=== PATIENT | male | born 1970 | race Caucasian/White ===

== ENCOUNTER 2016-12-12 14:47 | Inpatient (IN) | payer OTHER ==
[2016-12-12 16:01] VITALS: BMI 30.6
[2016-12-12] MEDS ORDERED: diphenhydrAMINE HCL 50 MG CAPSULE PO PRN (17:26)
[2016-12-12] MEDS ORDERED: IBUPROFEN 400 MG TABLET (FP) PO PRN (17:26)
[2016-12-12] MEDS ORDERED: ACETAMINOPHEN 325 MG TABLET (FP) PO PRN (17:26)
[2016-12-12] MEDS ORDERED: guaiFENesin/D-METHORPHAN HB 10 ML UNIT-DOSE CUPS PO PRN (17:26)
[2016-12-12] MEDS ORDERED: METHADONE HCL 10 MG TABLET (FOR DETOX USE ONLY) PO ONE ×2 (17:26→23:00)
[2016-12-12] MEDS ORDERED: P-EPHED 60MG/TRIPROLIDI 2.5MG TABLET PO PRN (17:26)
[2016-12-12] MEDS ORDERED: MAGNESIUM HYDROX 2400MG/30ML ORAL SUSPENSION 30 ML CUP PO PRN (17:26)
[2016-12-12] MEDS ORDERED: LOPERAMIDE HCL 2 MG CAPSULE PO PRN (17:26)
[2016-12-12] MEDS ORDERED: MAG HYDROX/AL HYDROX/SIMETH 30 ML UNIT-DOSE CUP PO PRN (17:26)
[2016-12-12] MEDS ORDERED: MAGNESIUM CITRATE 300 ML BOTTLE PO PRN (17:26)
[2016-12-12] MEDS ORDERED: MENTHOL/PHENOL 1 EACH UD MM PRN (17:26)
[2016-12-12] MEDS ORDERED: hydrOXYzine PAMOATE 50 MG CAPSULE (FP) PO PRN (17:26)
--- NOTE | 2016-12-12 17:26 | HP ---
COWS - Scale Resting Pulse: 0= [place] 80 or Below Sweatin= Chills/Flushing Restless Observation: 1= Difficult to Sit Still Pupil Size: 1= Pupils >than Normal Bone or Joint Aches: 1= Mild Discomfort Runny Nose/ Eye Tearin= Nasal Congestion GI Upset > 30mins: 2= Nausea/Diarrhea Tremor Observation: 2= Slight Tremor Visible Yawning Observation: 1= 1-2x During Session Anxiety or Irritability: 2=Irritable/Anxious Goose Flesh Skin: 3=Piloerection COWS Score: 15 Admission ROS [facility] Chief Complaint: heroin withdrawal Allergies/Adverse Reactions: Allergies Allergy/AdvReac Type Severity Reaction Status Date / Time Fish Containing Products Allergy Severe Itching Verified 12/12/16 16:27 No Known Drug Allergies Allergy Verified 12/12/16 16:27 History of Present Illness: 46 yo m with opioid dependence not in treatment, was admitted to [facility] for detox less than 1 year ago, using daily 15 bags, last used this am. now c/o heroin withdrawwals, no seziures, no DTs, denies alcohol use, occasional benzodiazepine or sedative use on weekends. smokes <10/day. no psychiatric history no suicidal ideation - Ebola screening Have you traveled outside of the country in the last 21 days: No Have you had contact with anyone from an Ebola affected area: No Have you been sick,other than usual withdrawal symptoms: No - Review of Systems Constitutional: Chills, Diaphoresis, Loss of Appetite, Malaise, Night Sweats, Changes in sleep, Weakness EENT: reports: Nose Congestion Respiratory: reports: No Symptoms reported Cardiac: reports: No Symptoms Reported GI: reports: Diarrhea, Nausea, Poor Appetite, Poor Fluid Intake, Vomiting, Indigestion, Abdominal cramping : reports: No Symptoms Reported Musculoskeletal: reports: Back Pain, Joint Pain (knee pain from arthrititis) Integumentary: reports: Flushing, Sweating Neuro: reports: Numbness, Tremors Endocrine: reports: No Symptoms Reported Hematology: reports: No Symptoms Reported Psychiatric: reports: Judgement Intact, Mood/Affect Appropiate, Orientated x3, Anxious, Depressed Other Systems: Reviewed and Negative Patient History - Patient Medical History Hx Anemia: No Hx Asthma: No Hx Chronic Obstructive Pulmonary Disease (COPD): No Hx Cancer: No Hx Cardiac Disorders: No Hx Congestive Heart Failure: No Hx Hypertension: No Hx Hypercholesterolemia: No Hx Pacemaker: No HX Cerebrovascular Accident: No Hx Seizures: No Hx Dementia: No Hx Diabetes: No Hx Gastrointestinal Disorders: No Hx Liver Disease: No Hx Genitourinary Disorders: No Hx Sexually Transmitted Disorders: No Hx Renal Disease (ESRD): No Hx Thyroid Disease: No Hx Human Immunodeficiency Virus (HIV): No Hx Hepatitis C: No Hx Depression: Yes Hx Suicide Attempt: No Hx Bipolar Disorder: No Hx Schizophrenia: No - Patient Surgical History Past Surgical History: No Hx Neurologic Surgery: No Hx Cataract Extraction: No Hx Cardiac Surgery: No Hx Lung Surgery: No Hx Breast Surgery: No Hx Breast Biopsy: No Hx Abdominal Surgery: No Hx Appendectomy: No Hx Cholecystectomy: No Hx Genitourinary Surgery: No Hx Section: No Hx Orthopedic Surgery: No Hx Hysterectomy: No Anesthesia Reaction: No - PPD History Previous Implant?: Yes Documented Results: Negative w/proof Date: 01/29/16 Results: 0 mm PPD to be Administered?: No - Reproductive History Patient is a Female of Child Bearing Age (11 -55 yrs old): No Patient : No - Smoking Cessation Smoking history: Current every day smoker Have you smoked in the past 12 months: Yes Aproximately how many cigarettes per day: 6 Cigars Per Day: 0 Hx Chewing Tobacco Use: No Initiated information on smoking cessation: Yes 'Breaking Loose' booklet given: 12/12/16 - Substance & Tx. History Hx Alcohol Use: No Hx Substance Use: Yes Substance Use Type: Heroin, Opiates, Prescribed, Tranquilizers Hx Substance Use Treatment: Yes ([facility] 01/2016) - Substances Abused Heroin Route: Inhalation Frequency: Daily Amount used: 15 bags Age of first use: 27 Date of Last Use: 12/12/16 Family Disease History - Family Disease History Family Disease History: Diabetes: Mother (ARTHRITIS), Other: Father (NEVER MET) , Mother Admission Physical Exam BHS - Vital Signs Vital Signs: Vital Signs - 24 hr 12/12/16 16:00 Temperature 96.2 F L Pulse Rate 69 Respiratory 18 Rate Blood Pressure 141/80 - Physical General Appearance: Yes: Nourished, Appropriately Dressed, Disheveled, Mild Distress, Tremorous, Irritable, Sweating, Anxious HEENTM: Yes: EOMI, Hearing grossly Normal, Normal ENT Inspection, Normocephalic , Normal Voice, WILLA, Pharynx Normal, Nasal Congestion, Rhinorrhea Respiratory: Yes: Within Normal Limits, Chest Non-Tender, Lungs Clear, Normal Breath Sounds, No Respiratory Distress, No Accessory Muscle Use Neck: Yes: Within Normal Limits, No masses,lesions,Nodules, Supple, Trachea in good position Breast: Yes: Breast Exam Deferred Cardiology: Yes: Within Normal Limits, Regular Rhythm, Regular Rate, S1, S2 Abdominal: Yes: Normal Bowel Sounds, Non Tender, Soft, Increased Bowel Sounds, Protuberent, Distended Genitourinary: Yes: Within Normal Limits Back: Yes: Within Normal Limits, Normal Inspection Musculoskeletal: Yes: full range of Motion, Gait Steady, Pelvis Stable, Back pain, Joint Stiffness (left knee) Extremities: Yes: Normal Capillary Refill, Normal Range of Motion, Non-Tender, Tremors Neurological: Yes: captain cannery tender II-XII NML intact, Fully Oriented, Alert, Motor Strength 5/5, Normal Response, Depressed Affect Integumentary: Yes: Normal Color, Warm, Moist Lymphatic: Yes: Within Normal Limits - Addiitonal Findings: heroin withdrawal sx noted - Diagnostic (1) Nicotine dependence Current Visit: Yes Status: Chronic Qualifiers: Nicotine product type: cigarettes Substance use status: uncomplicated Qualified Code(s): F17.210 - Nicotine dependence, cigarettes, uncomplicated (2) Arthritis Current Visit: Yes Status: Suspected Comment: LEFT KNEE (3) Opioid dependence with withdrawal Current Visit: Yes Status: Acute (4) Benzodiazepine abuse Current Visit: Yes Status: Acute (5) Obesity Current Visit: Yes Status: Acute Cleared for Admission [facility] - Detox or Rehab [facility] Level of Care: Medically Managed Detox Regimen/Protocol: Methadone [facility] Breath Alcohol Content Breath Alcohol Content: 0 Urine Drug Screen - Results Drug Screen Negative: No Urine Drug Screen Results: OPI-Opiates, OXY-Oxycodone
[2016-12-12] MEDS: diazePAM 5 MG TABLET PO PRN (18:24)
[2016-12-12] MEDS: NICOTINE 14 MG/24 HOURS TOPICAL PATCH TD SCH (18:24)
[2016-12-12 21:43] LABS: URINE APPEARANCE CLEAR; URINE BILIRUBIN NEGATIVE (NEGATIVE); URINE BLOOD NEGATIVE (NEGATIVE); URINE COLOR LTYELLOW; URINE GLUCOSE (UA) NEGATIVE (NEGATIVE); URINE KETONE NEGATIVE (NEGATIVE); URINE LEUK ESTERASE NEGATIVE (NEGATIVE); URINE NITRITE NEGATIVE (NEGATIVE); URINE PROTEIN NEGATIVE (NEGATIVE); URINE UROBILINOGEN NEGATIVE mg/dL (0.2-1.0)
[2016-12-12] MEDS: NAPROXEN 500 MG TABLET (FP) PO SCH (22:09)
[2016-12-12] MEDS: ZOLPIDEM TARTRATE 5 MG TABLET PO PRN (22:09)
[2016-12-12] MEDS: CYCLOBENZAPRINE HCL 10 MG TABLET (FP) PO SCH (22:09)
[2016-12-12] MEDS: THIAMINE HCL 100 MG TABLET (FP) PO SCH (22:09)
[2016-12-13] MEDS: diazePAM 5 MG TABLET PO PRN (06:12)
[2016-12-13] MEDS: CYCLOBENZAPRINE HCL 10 MG TABLET (FP) PO SCH ×3 (06:12→22:08)
[2016-12-13 10:00] LABS: MCH 29.9 pg (25.7-33.7); MCHC 32.8 g/dl (32.0-35.9); MEAN PLT VOLUME 8.4 fl (7.5-11.1); PLATELET COUNT 213 K/MM3 (134-434); RDW 13.4 % (11.9-15.9); WHITE BLOOD COUNT 5.4 K/mm3 (4.0-10.0)
[2016-12-13] MEDS ORDERED: METHADONE HCL 10 MG TABLET (FOR DETOX USE ONLY) PO ONE (10:00)
[2016-12-13] MEDS: NAPROXEN 500 MG TABLET (FP) PO SCH ×2 (10:07→22:08)
[2016-12-13] MEDS: NICOTINE POLACRILEX 2 MG GUM BC PRN (10:07)
[2016-12-13] MEDS: PANTOPRAZOLE 40 MG TABLET (FP) PO SCH (10:07)
[2016-12-13] MEDS: NICOTINE 14 MG/24 HOURS TOPICAL PATCH TD SCH (10:07)
[2016-12-13] MEDS: PRENATAL VITAMINS W/ FOLIC ACID TABLET (FP) PO SCH (10:07)
[2016-12-13 10:42] LABS: ALBUMIN 3.2 g/dl (3.4-5.0); ALK PHOS 46 U/L (45-117); ANION GAP 7 (8-16); BILIRUBIN,TOTAL 0.7 mg/dL (0.2-1.0); CALCIUM 8.2 mg/dL (8.5-10.1); CO2 30 mmol/L (21-32); CREATININE 0.8 mg/dL (0.7-1.3); GLUCOSE,RANDOM 81 mg/dL (74-106); SGOT/AST 13 U/L (15-37); SGPT/ALT 24 U/L (12-78)
--- NOTE | 2016-12-13 11:28 | PN ---
BHS COWS - Scale Resting Pulse: 0= [place] 80 or Below Sweatin= Chills/Flushing Restless Observation: 1= Difficult to Sit Still Pupil Size: 0= Normal to Room Light Bone or Joint Aches: 1= Mild Discomfort Runny Nose/ Eye Tearin= Runny Nose/Eyes GI Upset > 30mins: 1= Stomach Cramp Tremor Observation of Outstretched Hands: 0= None Yawning Observation: 1= 1-2x During Session Anxiety or Irritability: 2=Irritable/Anxious Goose Flesh Skin: 3=Piloerection COWS Score: 12 BHS Progress Note (SOAP) Subjective: Fatigue, Sweating, Anxious. Objective: PT. A & O X 2 (DISORIENTED ABOUT DAY / DATE). NO ACUTE DISTRESS. PT. OBSERVED AMBULATING ON UNIT. 12/13/16 11:26 Vital Signs Temperature 97.5 F L 12/13/16 09:43 Pulse Rate 73 12/13/16 09:43 Respiratory Rate 18 12/13/16 09:43 Blood Pressure 116/77 12/13/16 09:43 O2 Sat by Pulse Oximetry (%) Laboratory Tests 12/12/16 12/13/16 12/13/16 20:30 07:00 07:00 WBC 5.4 RBC 4.03 Hgb 12.0 D Hct 36.7 MCV 91.0 MCH 29.9 MCHC 32.8 RDW 13.4 Plt Count 213 MPV 8.4 Urine Color Ltyellow Urine Appearance Clear Urine pH 5.0 Ur Specific [place] 1.020 Urine Protein Negative Urine Glucose (UA) Negative Urine Ketones Negative Urine Blood Negative Urine Nitrite Negative Urine Bilirubin Negative Urine Urobilinogen Negative Ur Leukocyte Esterase Negative RPR Titer Nonreactive LABS NOTED. CMP PENDING. 12/13/16 11:28 Assessment: 12/13/16 11:27 WITHDRAWAL SYMPTOMS. Plan: CONTINUE DETOX.
--- NOTE | 2016-12-13 12:27 | EKG ---
Test Reason : Blood Pressure : / mmHG Vent. Rate : 071 BPM Atrial Rate : 071 BPM P-R Int : 104 ms QRS Dur : 082 ms QT Int : 402 ms P-R-T Axes : -64 052 037 degrees QTc Int : 436 ms POOR DATA QUALITY, INTERPRETATION MAY BE ADVERSELY AFFECTED NORMAL SINUS RHYTHM Confirmed by DAMIEN SAUL, SAE ([id number]) on 12/13/2016 12:27:34 PM Referred By: Confirmed By:SAE QUEZADA MD
--- NOTE | 2016-12-13 14:12 | EKG ---
Test Reason : Blood Pressure : / mmHG Vent. Rate : 069 BPM Atrial Rate : 069 BPM P-R Int : 122 ms QRS Dur : 090 ms QT Int : 400 ms P-R-T Axes : 060 045 041 degrees QTc Int : 428 ms NORMAL SINUS RHYTHM NORMAL ECG WHEN COMPARED WITH ECG OF 12-DEC-2016 18:28, SINUS RHYTHM HAS REPLACED JUNCTIONAL RHYTHM Confirmed by SAE QUEZADA MD ([id number]) on 12/13/2016 2:11:47 PM Referred By: Confirmed By:SAE QUEZADA MD
[2016-12-13] MEDS: ZOLPIDEM TARTRATE 5 MG TABLET PO PRN (22:08)
[2016-12-13] MEDS: THIAMINE HCL 100 MG TABLET (FP) PO SCH (22:08)
[2016-12-14] MEDS: CYCLOBENZAPRINE HCL 10 MG TABLET (FP) PO SCH ×3 (05:48→22:09)
[2016-12-14] MEDS ORDERED: METHADONE HCL 5 MG TABLET (FOR DETOX USE ONLY) PO ONE (10:00)
[2016-12-14] MEDS: NAPROXEN 500 MG TABLET (FP) PO SCH ×2 (10:05→22:09)
[2016-12-14] MEDS: PANTOPRAZOLE 40 MG TABLET (FP) PO SCH (10:05)
[2016-12-14] MEDS: NICOTINE 14 MG/24 HOURS TOPICAL PATCH TD SCH (10:05)
[2016-12-14] MEDS: PRENATAL VITAMINS W/ FOLIC ACID TABLET (FP) PO SCH (10:05)
--- NOTE | 2016-12-14 12:04 | PN ---
S COWS - Scale Resting Pulse: 1= SD 81-100 Sweatin= Chills/Flushing Restless Observation: 1= Difficult to Sit Still Pupil Size: 0= Normal to Room Light Bone or Joint Aches: 1= Mild Discomfort Runny Nose/ Eye Tearin= Runny Nose/Eyes GI Upset > 30mins: 0= None Tremor Observation of Outstretched Hands: 1= Tremor [place], Not Seen Yawning Observation: 1= 1-2x During Session Anxiety or Irritability: 2=Irritable/Anxious Goose Flesh Skin: 3=Piloerection COWS Score: 13 S Progress Note (SOAP) Subjective: Anxious, Fatigue. Objective: PT. A & O X 2 (DISORIENTED ABOUT DAY/ DATE). NO ACUTE DISTRESS. 12/14/16 12:06 Vital Signs Temperature 97.4 F L 12/14/16 11:02 Pulse Rate 93 H 12/14/16 11:02 Respiratory Rate 20 12/14/16 11:02 Blood Pressure 126/80 12/14/16 11:02 O2 Sat by Pulse Oximetry (%) Laboratory Tests 12/12/16 12/13/16 12/13/16 20:30 07:00 07:00 WBC 5.4 RBC 4.03 Hgb 12.0 D Hct 36.7 MCV 91.0 MCH 29.9 MCHC 32.8 RDW 13.4 Plt Count 213 MPV 8.4 Sodium 141 Potassium 4.4 Chloride 104 Carbon Dioxide 30 Anion Gap 7 L BUN 17 Creatinine 0.8 Creat Clearance w eGFR > 60 Random Glucose 81 Calcium 8.2 L Total Bilirubin 0.7 D AST 13 L D ALT 24 Alkaline Phosphatase 46 Total Protein 6.0 L Albumin 3.2 L Urine Color Ltyellow Urine Appearance Clear Urine pH 5.0 Ur Specific [place] 1.020 Urine Protein Negative Urine Glucose (UA) Negative Urine Ketones Negative Urine Blood Negative Urine Nitrite Negative Urine Bilirubin Negative Urine Urobilinogen Negative Ur Leukocyte Esterase Negative RPR Titer 12/13/16 07:00 WBC RBC Hgb Hct MCV MCH MCHC RDW Plt Count MPV Sodium Potassium Chloride Carbon Dioxide Anion Gap BUN Creatinine Creat Clearance w eGFR Random Glucose Calcium Total Bilirubin AST ALT Alkaline Phosphatase Total Protein Albumin Urine Color Urine Appearance Urine pH Ur Specific [place] Urine Protein Urine Glucose (UA) Urine Ketones Urine Blood Urine Nitrite Urine Bilirubin Urine Urobilinogen Ur Leukocyte Esterase RPR Titer Nonreactive LABS NOTED. Assessment: 12/14/16 12:07 WITHDRAWAL SYMPTOMS. Plan: CONTINUE DETOX.
[2016-12-14] MEDS: ZOLPIDEM TARTRATE 5 MG TABLET PO PRN (22:09)
[2016-12-14] MEDS: THIAMINE HCL 100 MG TABLET (FP) PO SCH (22:09)
[2016-12-14] MEDS: diazePAM 5 MG TABLET PO PRN (22:09)
[2016-12-15] MEDS: CYCLOBENZAPRINE HCL 10 MG TABLET (FP) PO SCH ×3 (06:06→22:09)
[2016-12-15] MEDS ORDERED: METHADONE HCL 5 MG TABLET (FOR DETOX USE ONLY) PO ONE (10:00)
[2016-12-15] MEDS: diazePAM 5 MG TABLET PO PRN (10:12)
[2016-12-15] MEDS: PRENATAL VITAMINS W/ FOLIC ACID TABLET (FP) PO SCH (10:12)
[2016-12-15] MEDS: PANTOPRAZOLE 40 MG TABLET (FP) PO SCH (10:12)
[2016-12-15] MEDS: NICOTINE 14 MG/24 HOURS TOPICAL PATCH TD SCH (10:12)
[2016-12-15] MEDS: NAPROXEN 500 MG TABLET (FP) PO SCH ×2 (10:12→22:09)
[2016-12-15] MEDS: NICOTINE POLACRILEX 2 MG GUM BC PRN (10:14)
--- NOTE | 2016-12-15 19:20 | PN ---
BHS Progress Note (SOAP) Subjective: Vomiting, Sweating. Objective: PT. A & O X 3, OBSERVED AMBULATING ON UNIT. NO ACUTE DISTRESS. 12/15/16 19:18 Vital Signs Temperature 97.7 F 12/15/16 18:24 Pulse Rate 93 H 12/15/16 18:24 Respiratory Rate 18 12/15/16 18:24 Blood Pressure 99/57 12/15/16 18:24 O2 Sat by Pulse Oximetry (%) Laboratory Tests 12/12/16 12/13/16 12/13/16 20:30 07:00 07:00 WBC 5.4 RBC 4.03 Hgb 12.0 D Hct 36.7 MCV 91.0 MCH 29.9 MCHC 32.8 RDW 13.4 Plt Count 213 MPV 8.4 Sodium 141 Potassium 4.4 Chloride 104 Carbon Dioxide 30 Anion Gap 7 L BUN 17 Creatinine 0.8 Creat Clearance w eGFR > 60 Random Glucose 81 Calcium 8.2 L Total Bilirubin 0.7 D AST 13 L D ALT 24 Alkaline Phosphatase 46 Total Protein 6.0 L Albumin 3.2 L Urine Color Ltyellow Urine Appearance Clear Urine pH 5.0 Ur Specific [place] 1.020 Urine Protein Negative Urine Glucose (UA) Negative Urine Ketones Negative Urine Blood Negative Urine Nitrite Negative Urine Bilirubin Negative Urine Urobilinogen Negative Ur Leukocyte Esterase Negative RPR Titer 12/13/16 07:00 WBC RBC Hgb Hct MCV MCH MCHC RDW Plt Count MPV Sodium Potassium Chloride Carbon Dioxide Anion Gap BUN Creatinine Creat Clearance w eGFR Random Glucose Calcium Total Bilirubin AST ALT Alkaline Phosphatase Total Protein Albumin Urine Color Urine Appearance Urine pH Ur Specific [place] Urine Protein Urine Glucose (UA) Urine Ketones Urine Blood Urine Nitrite Urine Bilirubin Urine Urobilinogen Ur Leukocyte Esterase RPR Titer Nonreactive LABS NOTED. Assessment: 12/15/16 19:19 WITHDRAWAL SYMPTOMS. Plan: CONTINUE DETOX. INCREASE PO FLUID INTAKE.
[2016-12-15] MEDS: ZOLPIDEM TARTRATE 5 MG TABLET PO PRN (22:09)
[2016-12-15] MEDS: THIAMINE HCL 100 MG TABLET (FP) PO SCH (22:09)
[2016-12-16] MEDS: CYCLOBENZAPRINE HCL 10 MG TABLET (FP) PO SCH ×3 (05:13→22:23)
[2016-12-16] MEDS ORDERED: METHADONE HCL 10 MG TABLET (FOR DETOX USE ONLY) PO ONE (10:00)
[2016-12-16] MEDS: NICOTINE POLACRILEX 2 MG GUM BC PRN (10:08)
[2016-12-16] MEDS: NAPROXEN 500 MG TABLET (FP) PO SCH ×2 (10:08→22:23)
[2016-12-16] MEDS: PRENATAL VITAMINS W/ FOLIC ACID TABLET (FP) PO SCH (10:08)
[2016-12-16] MEDS: PANTOPRAZOLE 40 MG TABLET (FP) PO SCH (10:08)
[2016-12-16] MEDS: NICOTINE 14 MG/24 HOURS TOPICAL PATCH TD SCH (10:09)
--- NOTE | 2016-12-16 16:35 | PN ---
BHS Progress Note (SOAP) Subjective: Weak (low energy), sweating, interrupted sleep, chills Objective: 12/16/16 16:33 Last Vital Signs Temp Pulse Resp BP Pulse Ox 97.0 F L 104 H 20 100/74 12/16/16 13:17 12/16/16 13:17 12/16/16 13:17 12/16/16 13:17 Laboratory Tests 12/12/16 12/13/16 12/13/16 20:30 07:00 07:00 WBC 5.4 RBC 4.03 Hgb 12.0 D Hct 36.7 MCV 91.0 MCH 29.9 MCHC 32.8 RDW 13.4 Plt Count 213 MPV 8.4 Sodium 141 Potassium 4.4 Chloride 104 Carbon Dioxide 30 Anion Gap 7 L BUN 17 Creatinine 0.8 Creat Clearance w eGFR > 60 Random Glucose 81 Calcium 8.2 L Total Bilirubin 0.7 D AST 13 L D ALT 24 Alkaline Phosphatase 46 Total Protein 6.0 L Albumin 3.2 L Urine Color Ltyellow Urine Appearance Clear Urine pH 5.0 Ur Specific [place] 1.020 Urine Protein Negative Urine Glucose (UA) Negative Urine Ketones Negative Urine Blood Negative Urine Nitrite Negative Urine Bilirubin Negative Urine Urobilinogen Negative Ur Leukocyte Esterase Negative RPR Titer 12/13/16 07:00 WBC RBC Hgb Hct MCV MCH MCHC RDW Plt Count MPV Sodium Potassium Chloride Carbon Dioxide Anion Gap BUN Creatinine Creat Clearance w eGFR Random Glucose Calcium Total Bilirubin AST ALT Alkaline Phosphatase Total Protein Albumin Urine Color Urine Appearance Urine pH Ur Specific [place] Urine Protein Urine Glucose (UA) Urine Ketones Urine Blood Urine Nitrite Urine Bilirubin Urine Urobilinogen Ur Leukocyte Esterase RPR Titer Nonreactive Labs noted Assessment: 12/16/16 16:34 Withdrawal symptoms Plan: Continue detox
[2016-12-16] MEDS: ZOLPIDEM TARTRATE 5 MG TABLET PO PRN (22:23)
[2016-12-16] MEDS: THIAMINE HCL 100 MG TABLET (FP) PO SCH (22:23)
[2016-12-17] MEDS: CYCLOBENZAPRINE HCL 10 MG TABLET (FP) PO SCH ×2 (05:43→13:40)
[2016-12-17] MEDS ORDERED: METHADONE HCL 5 MG TABLET (FOR DETOX USE ONLY) PO ONE (06:00)
--- NOTE | 2016-12-17 09:06 | DS ---
[facility] Detox Discharge Summary Admission Date: 12/12/16 Discharge Date: 12/17/16 - History Present History: Opioid Dependence Pertinent Past History: nicotine dependence, obesity - Physical Exam Results Vital Signs: Vital Signs Temperature 97.4 F L 12/17/16 06:27 Pulse Rate 102 H 12/17/16 06:27 Respiratory Rate 18 12/17/16 06:27 Blood Pressure 114/75 12/17/16 06:27 O2 Sat by Pulse Oximetry (%) Laboratory Tests 12/12/16 12/13/16 12/13/16 20:30 07:00 07:00 WBC 5.4 RBC 4.03 Hgb 12.0 D Hct 36.7 MCV 91.0 MCH 29.9 MCHC 32.8 RDW 13.4 Plt Count 213 MPV 8.4 Sodium 141 Potassium 4.4 Chloride 104 Carbon Dioxide 30 Anion Gap 7 L BUN 17 Creatinine 0.8 Creat Clearance w eGFR > 60 Random Glucose 81 Calcium 8.2 L Total Bilirubin 0.7 D AST 13 L D ALT 24 Alkaline Phosphatase 46 Total Protein 6.0 L Albumin 3.2 L Urine Color Ltyellow Urine Appearance Clear Urine pH 5.0 Ur Specific [place] 1.020 Urine Protein Negative Urine Glucose (UA) Negative Urine Ketones Negative Urine Blood Negative Urine Nitrite Negative Urine Bilirubin Negative Urine Urobilinogen Negative Ur Leukocyte Esterase Negative RPR Titer 12/13/16 07:00 WBC RBC Hgb Hct MCV MCH MCHC RDW Plt Count MPV Sodium Potassium Chloride Carbon Dioxide Anion Gap BUN Creatinine Creat Clearance w eGFR Random Glucose Calcium Total Bilirubin AST ALT Alkaline Phosphatase Total Protein Albumin Urine Color Urine Appearance Urine pH Ur Specific [place] Urine Protein Urine Glucose (UA) Urine Ketones Urine Blood Urine Nitrite Urine Bilirubin Urine Urobilinogen Ur Leukocyte Esterase RPR Titer Nonreactive Pertinent Admission Physical Exam Findings: withdrawal sx - Treatment Hospital Course: Detox Protocol Followed, Detoxed Safely, Responded well, Discharged Condition Good, Rehab Referral Accepted - Medication Discharge Medications: Ambulatory Orders NK [No Known Home Medication] 01/27/16 - Diagnosis (1) Nicotine dependence Current Visit: Yes Status: Chronic Qualifiers: Nicotine product type: cigarettes Substance use status: uncomplicated Qualified Code(s): F17.210 - Nicotine dependence, cigarettes, uncomplicated (2) Opioid dependence with withdrawal Current Visit: Yes Status: Acute (3) Obesity Current Visit: Yes Status: Chronic Qualifiers: Obesity type: unspecified obesity type Obesity classification: adult class 1 (BMI 30 ? 34.9) Serious obesity comorbidity presence: without serious comorbidity Body mass index: BMI 30.0-30.9 Qualified Code(s) : E66.9 - Obesity, unspecified (4) Benzodiazepine abuse Current Visit: Yes Status: Acute (5) Arthritis of left knee Current Visit: Yes Status: Acute - AMA Did Patient Leave Against Medical Advice: No
[2016-12-17 09:17] VITALS: TEMP 97
[2016-12-17] MEDS: PRENATAL VITAMINS W/ FOLIC ACID TABLET (FP) PO SCH (10:05)
[2016-12-17] MEDS: NAPROXEN 500 MG TABLET (FP) PO SCH (10:06)
[2016-12-17] MEDS: NICOTINE 14 MG/24 HOURS TOPICAL PATCH TD SCH (10:06)
[2016-12-17] MEDS: PANTOPRAZOLE 40 MG TABLET (FP) PO SCH (10:06)
[2016-12-17 13:32] VITALS: BP 108/79; PULSE 118
== END 2016-12-17 14:56 | disposition other institution (70) | DRG 773 ==
LOC: YASAS 14:47 → Y3N 16:42
PROVIDERS: ADMIT Internal Medicine Addiction Medicine; ATTEND Internal Medicine Addiction Medicine
PROC: HZ2ZZZZ Detoxification Services for Substance Abuse Treatment (ICD-10-PCS; principal; 2016-12-12)
DX: F11.23 Opioid dependence with withdrawal (principal); F13.10 Sedative, hypnotic or anxiolytic abuse, uncomplicated; F17.210 Nicotine dependence, cigarettes, uncomplicated; E66.9 Obesity, unspecified; Z68.30 Body mass index [BMI] 30.0-30.9, adult; M13.862 Other specified arthritis, left knee; Z91.013 Allergy to seafood
CPT/HCPCS: 36415; 80053; 81003; 85027; 86593; 93005; 93010

== ENCOUNTER 2016-12-17 15:11 | Inpatient (IN) | payer OTHER ==
--- NOTE | 2016-12-17 16:23 | HP ---
[facility] Re[facility] Assess/Revision - Admission History Admitted to Rehab from: [facility] Date of Admission to Rehab: 12/17/16 - Findings Detox History & Physical reviewed: Yes Concur with findings: Yes Comments/Additional Findings: transferred from detox to rehab admission as per protocol
[2016-12-17] MEDS ORDERED: LOPERAMIDE HCL 2 MG CAPSULE PO PRN (16:24)
[2016-12-17] MEDS ORDERED: NICOTINE 14 MG/24 HOURS TOPICAL PATCH TD PRN (16:24)
[2016-12-17] MEDS ORDERED: MAGNESIUM CITRATE 300 ML BOTTLE PO PRN (16:24)
[2016-12-17] MEDS ORDERED: MENTHOL/PHENOL 1 EACH UD MM PRN (16:24)
[2016-12-17] MEDS ORDERED: MAG HYDROX/AL HYDROX/SIMETH 30 ML UNIT-DOSE CUP PO PRN (16:24)
[2016-12-17] MEDS ORDERED: NICOTINE POLACRILEX 2 MG GUM BUC PRN (16:24)
[2016-12-17] MEDS ORDERED: IBUPROFEN 400 MG TABLET (FP) PO PRN (16:24)
[2016-12-17] MEDS ORDERED: P-EPHED 60MG/TRIPROLIDI 2.5MG TABLET PO PRN (16:24)
[2016-12-17] MEDS ORDERED: guaiFENesin/D-METHORPHAN HB 10 ML UNIT-DOSE CUPS PO PRN (16:24)
[2016-12-17] MEDS ORDERED: MAGNESIUM HYDROX 2400MG/30ML ORAL SUSPENSION 30 ML CUP PO PRN (16:24)
[2016-12-17] MEDS: THIAMINE HCL 100 MG TABLET (FP) PO SCH (22:14)
[2016-12-17] MEDS: diphenhydrAMINE HCL 50 MG CAPSULE PO PRN (22:14)
--- NOTE | 2016-12-18 10:14 | HP ---
Psychiatrist Admission - Data Date of interview: 12/18/16 Admission source: 3N Identifying data: This is the second inaptient rehabilitation admission, first at [facility] for this 46 year old single unemployed male residing in the group home. Medical History: Patient reports one seizure epsiode secondary to Xanax. use a few months ago. Psychiatric History: Patient denies history of psychiatric treatment, however reports he is anxious sometimes. Physical/Sexual Abuse/Trauma History: Patient denies history of sexual, physical and verbal abuse or service. Additional Comment: Reports was 9 years in abstinence while incarcerated and when released he continued abstinence. Vital Signs: Vital Signs - 24 hr 12/18/16 12/18/16 12/18/16 00:30 03:30 07:20 Temperature 98.0 F Pulse Rate 95 H Respiratory 18 18 18 Rate Blood Pressure 112/63 Allergies/Adverse Reactions: Allergies Allergy/AdvReac Type Severity Reaction Status Date / Time Fish Containing Products Allergy Severe Hives Verified 12/17/16 15:21 No Known Drug Allergies Allergy Verified 12/12/16 16:27 Date of last physical exam: 12/12/16 Concur with the findings of this exam: Yes - Substance Abuse/Tx History Hx Alcohol Use: No Hx Substance Use: Yes Substance Use Type: Heroin (started at age of 27, uses 15 bags daily.), Tranquilizers (xanax "on weekends") Hx Substance Use Treatment: Yes ([facility] 3w) - Admission Criteria Previous failed treatment: Yes Poor recovery environment: Yes Comorbidities: No Lacks judgement: Yes Mental Status Exam - Mental Status Exam Alert and Oriented to: Time, Place, Person Cognitive Function: Good Patient Appearance: Well Groomed Mood: Anxious, Irritable Affect: Appropriate, Mood Congruent Patient Behavior: Appropriate, Cooperative Speech Pattern: Clear, Appropriate Voice Loudness: Normal Thought Process: Intact, Goal Oriented Thought Disorder: Not Present Hallucinations: Denies Suicidal Ideation: Denies Homicidal Ideation: Denies Insight/Judgement: Fair Sleep: Fair Appetite: Fair Muscle strength/Tone: Normal Gait/Station: Normal Psychiatric Findings - Problem List ([place] 1, 2,3) (1) Nicotine dependence Current Visit: No Status: Chronic Qualifiers: Nicotine product type: cigarettes Substance use status: uncomplicated Qualified Code(s): F17.210 - Nicotine dependence, cigarettes, uncomplicated (2) Sedative, hypnotic or anxiolytic use disorder, mild, abuse Current Visit: Yes Status: Acute (3) Opioid dependence Current Visit: Yes Status: Acute (4) Drug-induced anxiety disorder Current Visit: Yes Status: Acute - Initial Treatment Plan Initial Treatment Plan: Patient made aware of Vistaril PRN order for anxiety, psychoeducation and support provided, will monitor progress as needed.
[2016-12-18] MEDS: PRENATAL VITAMINS W/ FOLIC ACID TABLET (FP) PO SCH (10:41)
[2016-12-18] MEDS: hydrOXYzine PAMOATE 50 MG CAPSULE (FP) PO PRN ×2 (10:42→14:23)
[2016-12-18 12:38] LABS: HIV 1 & 2 AB NEGATIVE; HIV 1 AGp24 NEGATIVE
[2016-12-18] MEDS: diphenhydrAMINE HCL 50 MG CAPSULE PO PRN (21:53)
[2016-12-18] MEDS: THIAMINE HCL 100 MG TABLET (FP) PO SCH (21:53)
[2016-12-18] MEDS: ACETAMINOPHEN 325 MG TABLET (FP) PO PRN (21:54)
[2016-12-19 07:30] VITALS: TEMP 98.2
[2016-12-19] MEDS: hydrOXYzine PAMOATE 50 MG CAPSULE (FP) PO PRN ×2 (10:47→17:45)
[2016-12-19] MEDS: PRENATAL VITAMINS W/ FOLIC ACID TABLET (FP) PO SCH (10:47)
[2016-12-19] MEDS: THIAMINE HCL 100 MG TABLET (FP) PO SCH (21:53)
[2016-12-19] MEDS: diphenhydrAMINE HCL 50 MG CAPSULE PO PRN (21:53)
[2016-12-19] MEDS: ACETAMINOPHEN 325 MG TABLET (FP) PO PRN (21:54)
[2016-12-20 07:19] VITALS: BP 108/70; PULSE 115
[2016-12-20] MEDS: hydrOXYzine PAMOATE 50 MG CAPSULE (FP) PO PRN (11:20)
[2016-12-20] MEDS: PRENATAL VITAMINS W/ FOLIC ACID TABLET (FP) PO SCH (11:20)
--- NOTE | 2016-12-20 12:22 | PN ---
Psychiatric Progress Note Vital Signs: Vital Signs Period Temp Pulse Resp BP Sys/[place]var[place] Pulse Ox Last 24 Hr 98.2 F 115 18-18 108/70 Date of Session: 12/20/16 Chief Complaint:: leaving ama HPI: Patient is a 46 year old male h/o sedative hypnotic, opioid, nicotine dependence comorbid substance induced mood disorder. ROS: WNL Current Medications: Active Medications Generic Name Dose Route Start Last Admin Trade Name Freq PRN Reason Stop Dose Admin Acetaminophen 650 mg 12/17/16 16:24 12/19/16 21:54 Tylenol - PO 650 mg Q4H PRN Administration FEVER OR PAIN Al Hydroxide/Mg Hydroxide 30 ml 12/17/16 16:24 Mylanta Oral Suspension - PO Q6H PRN DYSPEPSIA Diphenhydramine HCl 50 mg 12/17/16 16:24 12/19/16 21:53 Benadryl - PO 50 mg HSMR1 PRN Administration FOR ITCHING Eucalyptus/Menthol/Phenol/Sorbitol 1 each 12/17/16 16:24 Cepastat Lozenge - MM Q4H PRN SORE THROAT Guaifenesin 10 ml 12/17/16 16:24 Robitussin Dm - PO Q6H PRN COUGH Hydroxyzine Pamoate 50 mg 12/17/16 16:24 12/20/16 11:20 Vistaril - PO 50 mg Q4H PRN Administration AGITATION Ibuprofen 400 mg 12/17/16 16:24 Motrin - PO Q6H PRN PAIN Loperamide HCl 4 mg 12/17/16 16:24 Imodium - PO Q6H PRN DIARRHEA Magnesium Hydroxide 30 ml 12/17/16 16:24 Milk Of Magnesia - PO DAILY PRN CONSTIPATION Nicotine 14 mg 12/17/16 16:24 Nicoderm Patch - TD DAILY PRN WITHDRAWAL(CONT SUBST) Nicotine Polacrilex 2 mg 12/17/16 16:24 Nicorette Gum - BUC Q2H PRN NICOTINE REPLACEMENT RX Multivit/Folic Acid/Iron 1 tab 12/18/16 10:00 12/20/16 11:20 Vitamins (Sjr) - PO 1 tab DAILY YAMILEX Administration Pseudoephedrine/Triprolidine 1 combo 12/17/16 16:24 Actifed - PO TID PRN NASAL CONGESTION Thiamine HCl 100 mg 12/17/16 22:00 12/19/16 21:53 Vitamin B1 - PO 100 mg HS YAMILEX Administration Current Side Effect: No Lab tests ordered: No Lab tests reviewed: Yes Provider note:: Patient reported that he wants to leave the treatment AMA. Met with the patient to explore reasons for not continuing treatment, patient reports he wants to leave because he has a court date on Saturday and he has to complete his papers for his license.Patient was encouraged to complete his rehab treatment and focus on his recovery, but he continued with a discharge process. Patient is stable for AMA Total face to face time:: 15 Mental Status Exam - Mental Status Exam Alert and Oriented to: Time, Place, Person Cognitive Function: Good Patient Appearance: Well Groomed Affect: Appropriate, Mood Congruent Patient Behavior: Appropriate, Cooperative Speech Pattern: Appropriate Voice Loudness: Normal Thought Process: Goal Oriented Thought Disorder: Not Present Hallucinations: Denies Suicidal Ideation: Denies Homicidal Ideation: Denies Insight/Judgement: Fair Sleep: Fair Appetite: Fair Muscle strength/Tone: Normal Gait/Station: Normal Psychiatric Treatment Plan - Problem List (1) Nicotine dependence Qualifiers: Nicotine product type: cigarettes Substance use status: uncomplicated Qualified Code(s): F17.210 - Nicotine dependence, cigarettes, uncomplicated
== END 2016-12-20 12:40 | disposition left against medical advice (07) | DRG 770 ==
LOC: YASAS 15:11 → Y5N 15:13
PROVIDERS: ADMIT Psychiatry & Neurology Psychiatry; ATTEND Psychiatry & Neurology Psychiatry
PROC: HZ42ZZZ Group Counseling for Substance Abuse Treatment, Cognitive-Behavioral (ICD-10-PCS; principal; 2016-12-17)
DX: F11.20 Opioid dependence, uncomplicated (principal); F13.10 Sedative, hypnotic or anxiolytic abuse, uncomplicated; F17.210 Nicotine dependence, cigarettes, uncomplicated; F19.24 Other psychoactive substance dependence with psychoactive substance-induced mood disorder
CPT/HCPCS: 36415; 87389